=== PATIENT | male | born 1990 | race Caucasian/White ===

== ENCOUNTER 2016-12-24 16:46 | Emergency (ER) | payer BC ==
--- NOTE | 2016-12-24 17:08 | EDPHY ---
H & P Stated Complaint: Lt kidney pain starting this am Source: Patient Exam Limitations: No limitations - Personal History Current Tetanus/Diphtheria Vaccine: Yes - Medical/Surgical History Hx Asthma: No Hx Chronic Respiratory Disease: No Hx Diabetes: No Hx Cardiac Disease: No Hx Renal Disease: No Hx Cirrhosis: No Hx Alcoholism: No Hx HIV/AIDS: No Hx Splenectomy or Spleen Trauma: No Other PMH: Kidney stone - Social History Smoking Status: Current some day smoker Time Seen by Provider: 12/24/16 17:07 HPI/ROS: CHIEF COMPLAINT: left flank pain, left abdominal pain, left testicular pain HISTORY OF PRESENT ILLNESS: 26-year-old male with history of kidney stones presents emergency department complaining of sudden onset left flank pain that started 2 hours prior to arrival. Pain is sharp and constant. Patient reports for the last month he has had left testicular aching that has been very mild. Today this is much worse. Patient denies testicular swelling, no difficulty urinating, no penile discharge. Patient reports nausea, no vomiting. No difficulty urinating. REVIEW OF SYSTEMS: A comprehensive 10 point review of systems is otherwise negative aside from elements mentioned in the history of present illness. (Kiki Bella) - Physical Exam Exam: Physical Exam Gen: Alert and Oriented, grimacing HEENT: PERRL, moist mucous membranes NECK: no meningismus CV: regular rate and regular rhythm PULM: CTAB, no wheezes ABDOMEN: soft, left lower quadrant tenderness to palpation, BS present : Normal scrotal and testicular exam BACK: Left CVA tenderness NEURO: Neurologically grossly intact EXTREMITIES: normal appearing SKIN: no rash or break in skin on exposed skin PSYCH: answers questions appropriately. (Kiki Bella) Constitutional: Initial Vital Signs Temperature (C) 36.4 C 12/24/16 16:57 Heart Rate 77 12/24/16 16:57 Respiratory Rate 18 12/24/16 16:57 Blood Pressure 128/99 H 12/24/16 16:57 O2 Sat (%) 100 12/24/16 16:57 O2 Delivery Mode Nasal Cannula O2 (L/minute) 1 Allergies/Adverse Reactions: No Known Allergies Allergy (Unverified 12/24/16 16:56) Home Medications: Medication Instructions Recorded Adderall 10 MG (*) 12/24/16 Tamsulosin HCl [Flomax 0.4 MG (*)] 0.4 mg PO DAILY #7 cap 12/24/16 oxyCODONE/APAP 5/325 [Percocet 1 - 2 tab PO Q6H PRN #12 tab 12/24/16 5/325] Medical Decision Making - Diagnostics Imaging: Testicular ultrasound- Impression: Negative scrotal sonography. Small left epididymal head cyst. Results called to Dr. Phi Bella at 7:20 PM Dictated By: Fidencio Varner MD (Kiki Bella) ED Course/Re-evaluation: The patient was evaluated and managed by the physician's assistant federal public defender. My cosignature indicates that I reviewed the chart and I agree with the findings and plan of care as documented. I am the secondary supervising physician. ( Velvet Sher) IV established, chemistry panel and urinalysis ordered. Patient is given 1 mg of Dilaudid IV and 4 mg of Zofran IV. Urinalysis shows 10-15 RBCs, chemistry panel shows a normal BUN and creatinine. Patient is given 30 mg of Toradol IV which brought his pain from a 9 to a 2. Ultrasound of his testicles has been ordered due to the aching he has had for the past month, this is normal aside from a small epididymal head cyst. Patient will be discharged home with a diagnosis of left renal colic which is presumed from a kidney stone as he has had them in the past. No fevers, urinating without difficulty, no white blood cells in his urine. Patient will be discharged with prescription for Percocet, Zofran and tamsulosin. He is given Urology for follow-up. Patient is given return precautions for fevers, vomiting, pain that is not controlled. He is comfortable with this plan. (Kiki Bella) Differential Diagnosis: The differential diagnosis for the patient's flank pain included but was not limited to musculoskeletal causes, kidney stone, pyelonephritis, shingles, diverticulitis, appendicitis, and aortic aneurysm. (Kiki Bella) - Data Points Laboratory Results: Laboratory Results 12/24/16 17:16 12/24/16 12/24/16 17:16 17:00 Sodium 143 mEq/L (134-144) Potassium 5.5 H mEq/L (3.5-5.2) Chloride 100 mEq/L (97-110) Carbon Dioxide 25 mEq/l (22-31) Anion Gap 18 H mEq/L (8-16) BUN 19 mg/dL (7-23) Creatinine 0.9 mg/dL (0.7-1.3) Estimated GFR > 60 Glucose 103 H mg/dL (70-100) Calcium 10.1 mg/dL (8.5-10.4) Specimen Hemolysis 152 Urine Color YELLOW Urine Appearance HAZY Urine pH 7.0 (5.0-7.5) Ur Specific [place] 1.016 (1.002-1.030) Urine Protein NEGATIVE (NEGATIVE) Urine Ketones TRACE H (NEGATIVE) Urine Blood 1+ H (NEGATIVE) Urine Nitrate NEGATIVE (NEGATIVE) Urine Bilirubin NEGATIVE (NEGATIVE) Urine Urobilinogen NEGATIVE EU (0.2-1.0) Ur Leukocyte Esterase NEGATIVE (NEGATIVE) Urine RBC 10-15 H /hpf (0-3) Urine WBC 1-3 /hpf (0-3) Ur Epithelial Cells NONE SEEN /lpf (NONE-1+) Urine Mucus TRACE /lpf (NONE-1+) Ur Culture Indicated? NOT INDICATED (NI) Urine Glucose NEGATIVE (NEGATIVE) Medications Given: Discontinued Medications Fentanyl (Sublimaze) 100 mcg IVP EDNOW ONE Stop: 12/24/16 17:16 Last Admin: 12/24/16 17:20 Dose: 100 mcg Hydromorphone HCl (Dilaudid) 1 mg IVP EDNOW ONE Stop: 12/24/16 17:44 Last Admin: 12/24/16 17:45 Dose: 1 mg Hydromorphone HCl (Dilaudid) 1 mg IVP EDNOW ONE Stop: 12/24/16 18:23 Last Admin: 12/24/16 19:40 Dose: Not Given Sodium Chloride (Ns) 1,000 mls @ 0 mls/hr IV ONCE ONE PRN Reason: Wide Open Stop: 12/24/16 17:43 Last Admin: 12/24/16 17:20 Dose: 1,000 mls Ketorolac Tromethamine (Toradol) 30 mg IVP EDNOW ONE Stop: 12/24/16 18:24 Last Admin: 12/24/16 18:25 Dose: 30 mg Ondansetron HCl (Zofran) 4 mg IVP EDNOW ONE Stop: 12/24/16 17:16 Last Admin: 12/24/16 17:20 Dose: 4 mg Ondansetron HCl (Zofran) 4 mg IVP EDNOW ONE Stop: 12/24/16 17:46 Last Admin: 12/24/16 17:47 Dose: 4 mg Ondansetron HCl (Zofran Odt 4 Mg Prepack#2) 1 btl TAKEHOME EDNOW ONE Stop: 12/24/16 19:42 Last Admin: 12/24/16 19:48 Dose: 1 btl Oxycodone/Acetaminophen (Percocet 5/325mg Prepack#4) 1 btl TAKEHOME EDNOW ONE Stop: 12/24/16 19:42 Last Admin: 12/24/16 19:49 Dose: 1 btl Departure - Departure Disposition: Home, Routine, Self-Care Clinical Impression: Renal colic on left side Condition: Good Instructions: Renal Colic (ED), Ondansetron (By mouth), Oxycodone/ Acetaminophen (By mouth) Additional Instructions: Take Percocet as needed for severe pain. Use Zofran as needed for nausea. Take ibuprofen 600 mg every 6-8 hours as needed for moderate pain. This will also help with inflammation. Take Flomax as directed. Followup with urology as directed for symptoms not improving. Strain urine. Return to the emergency department if you have worsening pain, fevers, persistent vomiting, or other concerns. Referrals: Keron Landaverde MD [Medical Doctor] - As per Instructions (Urologist on-call) Prescriptions: Tamsulosin HCl [Flomax 0.4 MG (*)] 0.4 mg PO DAILY #7 cap oxyCODONE/APAP 5/325 [Percocet 5/325] 1 - 2 tab PO Q6H PRN #12 tab PRN Reason: Pain, Severe
[2016-12-24 17:09] LABS: COLOR YELLOW; LEUKOCYTE ESTERASE,URINE NEGATIVE (NEGATIVE); NITRITE,URINE NEGATIVE (NEGATIVE)
[2016-12-24 17:15] LABS: MUCUS TRACE /lpf (NONE-1+)
[2016-12-24] MEDS ORDERED: fentaNYL 100 MCG/2 ML INJ IVP ONE (17:15)
[2016-12-24] MEDS ORDERED: ONDANSETRON 4 MG/2 ML VIAL IVP ONE ×2 (17:15→17:45)
[2016-12-24] MEDS ORDERED: NS 1,000 ML IV ONE (17:42)
[2016-12-24] MEDS ORDERED: HYDROmorphONE/DILAUDID 1 MG/ML SYR ONE (17:42)
[2016-12-24] MEDS ORDERED: HYDROmorphONE/DILAUDID 1 MG/ML SYR IVP ONE ×2 (17:43→18:22)
[2016-12-24] MEDS ORDERED: ONDANSETRON 4 MG/2 ML VIAL ONE (17:45)
[2016-12-24 18:05] LABS: ANION GAP 18 mEq/L (8-16); CALCIUM 10.1 mg/dL (8.5-10.4); CARBON DIOXIDE 25 mEq/l (22-31); CHLORIDE 100 mEq/L (97-110); CREATININE 0.9 mg/dL (0.7-1.3); GLOMERULAR FILTRATION RATE > 60; GLUCOSE 103 mg/dL (70-100); POTASSIUM 5.5 mEq/L (3.5-5.2); SODIUM 143 mEq/L (134-144); SPECIMEN HEMOLYSIS 152
[2016-12-24] MEDS ORDERED: KETOROLAC 30 MG/1 ML SDV ONE (18:22)
[2016-12-24] MEDS ORDERED: KETOROLAC 15 MG/1 ML SDV IVP ONE (18:23)
--- NOTE | 2016-12-24 19:25 | US ---
Testicular Sonography History: Scrotal pain. Technique: Real-time imaging with a high frequency transducer and both color and pulsed duplex dopple r analysis. Findings: Both testes are well visualized. They are normal in size and homogeneous in echotexture. No hydrocele seen bilaterally. Doppler analysis reveals symmetric normal flow in each testis. The epidi dymides are symmetric in appearance, with a benign-appearing epididymal head cysts on the left measur ing 9 mm in size. Impression: Negative scrotal sonography. Small left epididymal head cyst. Results called to Dr. Phi Bella at 7:20 PM
[2016-12-24 19:30] VITALS: BP 125/78; RESP 12
[2016-12-24] MEDS ORDERED: ONDANSETRON 4MG PREPACK#2 BTL TAKEHOME ONE (19:41)
[2016-12-24] MEDS ORDERED: OXYCODONE/APAP 5/325MG PREPACK#4 BTL TAKEHOME ONE (19:41)
[2016-12-24 20:01] VITALS: PULSE 80; TEMP 98.1; O2SAT 93
== END 2016-12-24 20:01 | disposition home or self-care (01) ==
DX: N23 Unspecified renal colic (principal); F17.200 Nicotine dependence, unspecified, uncomplicated
CPT/HCPCS: 96374; J1170; J1885; J2405; J3010